=== PATIENT | female | born 1930 | race Hispanic/Latino ===

== ENCOUNTER 2016-04-12 10:29 | Emergency (ER) | payer MEDICARE ==
--- NOTE | 2016-04-12 11:41 | Emergency Department Report ---
Chief Complaint: Fall Stated Complaint: LT SHOULDER/BACK PAIN Time Seen by Provider: 04/12/16 11:27 - HPI History of Present Illness: 85-year-old female presents today with lower back pain, left shoulder and elbow pain post fall 2 days ago. Patient states that since she fell climbing up in a chair trying to get something off of the fridge. Head injury or loss of consciousness unknown. Positive for bruising of left elbow. Per family and patient has not been moving her arm since the fall. Positive for history of dementia and hypertension. - ROS Review of Systems: Per HPI - Exam Vital Signs: Vital Signs 04/12/16 10:33 Temperature 97.8 F Pulse Rate 51 L Respiratory 16 Rate Blood Pressure 138/75 O2 Sat by Pulse 100 Oximetry Physical Exam: General: 85-year-old female in no acute distress. CV: Regular rate and rhythm. Lungs: Clear to auscultation bilaterally. Left upper extremity: Tenderness to palpation or shoulder joint. Excessive ecchymosis noted of the elbow joint. Limited extremity range of motion due to pain. Normal sensation. 2 point discrimination intact. Peripheral pulses intact. MSE screening note: Focused history and physical exam performed. Due to findings the following was ordered: ED Disposition for MSE Condition: Stable
--- NOTE | 2016-04-12 13:09 | Cat Scan Report ---
CT HEAD WITHOUT CONTRAST: HISTORY: Head injury. TECHNIQUE: Sequential CT images without contrast. FINDINGS: Non-contrast CT of the head is submitted demonstrating central and cortical atrophy. There are low density changes in the periventricular white matter. There is no intracranial hemorrhage or mass effect. There is no shift of the midline. Basilar cisterns are patent. The included portions of the paranasal sinuses and mastoid air cells are clear. IMPRESSION: Senescent changes as noted. No acute intracranial process.
--- NOTE | 2016-04-12 13:18 | XRay Report ---
The lumbar spine 3 views: History: Fall, pain. Findings: Generalized osteopenia. The vertebral body heights appears normal. Normal intervertebral disc spaces. No obvious evidence of acute fracture. Abdominal aortic aneurysm. Impression: No definite evidence of acute fracture.
[2016-04-12 19:54] VITALS: BP 141/59
[2016-04-12] MEDS ORDERED: NORCO 5/325 PO ONE (20:23)
--- NOTE | 2016-04-12 20:23 | Emergency Department Report ---
HPI - General Chief Complaint: Fall Time Seen by Provider: 04/12/16 11:27 - HPI HPI: This is an 85-year-old female who presents to the emergency department 2 days after falling out of a chair and with the complaint of left shoulder and elbow pain as well as some back pain. The patient's son says he had just left the room when he heard her fall. The patient says that she may have hit the refrigerator on her way down. She denies hitting her head or any loss of consciousness. She is not taken anything for symptoms prior to presentation. She has a past medical history of dementia and hypertension. She does not have a primary care doctor or an orthopedist. She is not taken anything for symptoms prior to presentation. She is right-hand dominant. ED Past Medical Hx - Past Medical History Previous Medical History?: Yes Hx Hypertension: Yes - Surgical History Past Surgical History?: Yes Hx Cholecystectomy: Yes Additional Surgical History: Hernia repair, Hysterectomy - Social History Smoking Status: Current Every Day Smoker Substance Use Type: None - Medications Home Medications: Home Medications Medication Instructions Recorded Confirmed Last Taken Type HYDROcodone/APAP 5-325 [[place] 1 each PO Q6HR PRN #14 tablet 04/12/16 Unknown Rx 5/325] ED Review of Systems ROS: Stated complaint: LT SHOULDER/BACK PAIN Other details as noted in HPI Comment: All other systems reviewed and negative Constitutional: denies: chills, fever Eyes: denies: eye pain, eye discharge, vision change ENT: denies: ear pain, throat pain Respiratory: denies: cough, shortness of breath, wheezing Cardiovascular: denies: chest pain, palpitations Gastrointestinal: denies: abdominal pain, nausea, diarrhea Genitourinary: denies: urgency, dysuria, discharge Musculoskeletal: back pain, arthralgia Skin: denies: rash, pruritus Neurological: denies: numbness, paresthesias Physical Exam - Physical Exam Vital Signs: Vital Signs 04/12/16 04/12/16 04/12/16 10:33 18:08 18:09 Temperature 97.8 F 98.1 F Pulse Rate 51 L 87 Respiratory 16 18 18 Rate Blood Pressure 138/75 Blood Pressure 148/68 [Right] O2 Sat by Pulse 100 95 95 Oximetry 04/12/16 19:25 Temperature 97.9 F Pulse Rate 83 Respiratory 16 Rate Blood Pressure Blood Pressure 141/59 [Right] O2 Sat by Pulse 95 Oximetry Physical Exam: GENERAL: The patient is well-developed well-nourished. HEENT: Normocephalic. Atraumatic. Extraocular motions are intact. Patient has moist mucous membranes. Pupils equal reactive to light bilaterally. NECK: Supple. Trachea is midline. Nontender to palpation. Full range of motion. CHEST/LUNGS: Clear to auscultation. There is no respiratory distress noted. HEART/CARDIOVASCULAR: Regular. There is no tachycardia. There is no gallop rub or murmur. ABDOMEN: Abdomen is soft, nontender. Patient has normal bowel sounds. There is no abdominal distention. SKIN: There is some ecchymosis seen to the left elbow and inside of the left bicep. NEURO: The patient is awake, alert, and oriented. The patient is cooperative. The patient has no focal neurologic deficits. The patient has normal speech and gait. MUSCULOSKELETAL: Patient has tenderness palpation to the left upper arm from the shoulder to the elbow. There is no limitation range of motion. There is no evidence of acute injury. Radial pulses +2 over 4 bilaterally. Cap refill less than 2 seconds. Neurovascularly intact. BACK: Patient has some intermittent areas of tenderness to palpation but no obvious midline deformity or step-off. ED Course Vital Signs 04/12/16 04/12/16 04/12/16 10:33 18:08 18:09 Temperature 97.8 F 98.1 F Pulse Rate 51 L 87 Respiratory 16 18 18 Rate Blood Pressure 138/75 Blood Pressure 148/68 [Right] O2 Sat by Pulse 100 95 95 Oximetry 04/12/16 19:25 Temperature 97.9 F Pulse Rate 83 Respiratory 16 Rate Blood Pressure Blood Pressure 141/59 [Right] O2 Sat by Pulse 95 Oximetry ED Medical Decision Making - Radiology Data Radiology results: report reviewed, image reviewed interpreted by me: X-ray of the lumbar spine does not show any fracture, subluxation or any acute process. X-ray of the left elbow does not show any fracture, dislocation or any acute process. X-ray of the left shoulder shows a fracture of the humeral head that is comminuted. There is a portion that is impacted and angulated and a lateral fracture piece that appears in place. CT of the head shows senescent changes but otherwise no acute intracranial process. - Medical Decision Making 85-year-old female presents to the emergency department a few days after a fall out of a chair. She complains mostly of pain to the left upper arm. X-ray does not show any fracture or deformity of the elbow, but she does appear to have an acute comminuted fracture of the left humeral head. Patient will be placed in a sling. She is neurovascularly intact. CT of the head did not show any bleed, shift or any acute cranial process. X-ray of the lumbar spine was done and read by radiology and there is no signs of any fracture or dislocation. The patient continues to complain of some back pain when she is moved but it does not appear to be midline or have any step-off or deformity. I offered to the family to do a more thorough investigation of the spine including a CT of the thoracic and lumbar spine. However the family feels that her pain is probably most likely related to her shoulder fracture and have refused any further CT imaging of the the back at this time. She'll be given a referral for orthopedist and they will say they will get her back evaluated there as well, along with the shoulder fracture. She will remain in the sling until that time. However if she develops any worsening of her back pain, numbness or paresthesias or any problems with bowel or bladder, she'll be brought back emergently for a CT or MRI. She'll be given some pain medication. He managed by her son and they understand that is sedating and can cause further falls so they will monitor closely. - Differential Diagnosis shoulder fracture, elbow fracture, dislocation, contusion, brain bleed Critical Care Time: No Critical care attestation.: If time is entered above; I have spent that time in minutes in the direct care of this critically ill patient, excluding procedure time. ED Disposition Clinical Impression: Comminuted left humeral fracture, Elbow pain, left Back pain Qualifiers: Back pain location: back pain in unspecified location Chronicity: acute Back pain laterality: unspecified Qualified Code(s): M54.9 - Dorsalgia, unspecified Fall Qualifiers: Encounter type: initial encounter Qualified Code(s): W19.XXXA - Unspecified fall, initial encounter Disposition: DISCHARGED TO HOME OR SELFCARE Is pt being admited?: No Does the pt Need Aspirin: No Condition: Stable Instructions: Arm Fracture in Adults (ED), Fall Prevention for Older Adults (ED ) Additional Instructions: I have given you a referral for a local orthopedist, Dr. Gimenez, to follow up regarding the left shoulder/humeral head fracture. The patient should remain in the sling until follow-up at that time. I have also given you other physician names for primary care physicians so he can establish care with them as well. You've been prescribed a medication that is sedating. Therefore this medication cannot be mixed with alcohol, or taken prior to driving, working, or being responsible for children. The pain medication may make you more prone to fall and you should be monitored closely. Prescriptions: HYDROcodone/APAP 5-325 [[place] 5/325] 1 each PO Q6HR PRN #14 tablet PRN Reason: Pain Referrals: PRIMARY CARE, [Primary Care Provider] - 3-5 Days JULIETTE GIMENEZ MD [Staff Physician] - 3-5 Days CHANDRIKA JIMENEZ MD [Staff Physician] - 3-5 Days GERTRUDE CENTENO MD [Staff Physician] - 3-5 Days Time of Disposition: 21:32
--- NOTE | 2016-04-12 21:24 | XRay Report ---
FINAL REPORT PROCEDURE: XR SHOULDER 2 LT TECHNIQUE: Left shoulder, three views HISTORY: shoulder pain Fall - pain COMPARISON: No prior studies are available for comparison. FINDINGS: There is an acute comminuted fracture of the left humeral head, with impaction. There is a fragment mildly displaced laterally, measuring 2.4 x 0.8 centimeters. Glenohumeral joint does not appear dislocated. Acromioclavicular joint is intact. IMPRESSION: Acute comminuted fracture of the humeral head
--- NOTE | 2016-04-13 10:45 | XRay Report ---
LEFT ELBOW, 3 VIEWS: HISTORY: Pain after fall. FINDINGS: Limited non-standard views were obtained secondary to poor patient cooperation. Osteopenia is evident. No acute osseous injury or joint pathology is detected. IMPRESSION: No acute abnormality is detected. Osteopenia.
== END 2016-04-12 22:05 | disposition home or self-care (01) ==
LOC: ED 10:29
DX: S42.355A Nondisplaced comminuted fracture of shaft of humerus, left arm, initial encounter for closed fracture (principal); M25.522 Pain in left elbow; M54.9 Dorsalgia, unspecified; I10 Essential (primary) hypertension; F17.200 Nicotine dependence, unspecified, uncomplicated; Z90.49 Acquired absence of other specified parts of digestive tract; Z90.710 Acquired absence of both cervix and uterus; W07.XXXA Fall from chair, initial encounter; Y93.89 Activity, other specified; Y99.8 Other external cause status; Y92.89 Other specified places as the place of occurrence of the external cause
CPT/HCPCS: 70450; 72100

== ENCOUNTER 2016-08-12 13:25 | Inpatient (IN) | payer MEDICARE ==
[2016-08-12] MEDS ORDERED: NACL 0.9% 1000 ML 1,000 ML IV ONE ×2 (14:18→15:00)
[2016-08-12] MEDS ORDERED: NACL 0.9% 1000 ML 1,000 ML ONE (14:19)
[2016-08-12 14:39] LABS: Basophils % (Auto) 0.5 % (0.0-1.8); Hematocrit 36.6 % (30.3-42.9); Mean Corpuscular HGB Conc 33 % (30-34); Mean Corpuscular Hemoglobin 30 pg (28-32); Mean Corpuscular Volume 90 fl (79-97); Platelet Count 128 K/mm3 (140-440); Red Blood Count 4.08 M/mm3 (3.65-5.03); Red Cell Distribution Width 19.2 % (13.2-15.2); White Blood Count 3.8 K/mm3 (4.5-11.0)
[2016-08-12 14:53] LABS: Alanine Aminotransferase 6 units/L (7-56); Albumin 2.4 g/dL (3.9-5); Albumin/Globulin Ratio 0.9 %; Alkaline Phosphatase 80 units/L (35-129); Anion Gap 20 mmol/L; BUN/Creatinine Ratio 25.71; Blood Urea Nitrogen 18 mg/dL (7-17); Calcium 7.9 mg/dL (8.4-10.2); Carbon Dioxide 24 mmol/L (22-30); Chloride 97.7 mmol/L (98-107); Glucose 93 mg/dL (65-100); Potassium 3.4 mmol/L (3.6-5.0); Sodium 138 mmol/L (137-145); Total Protein 5.1 g/dL (6.3-8.2)
[2016-08-12 15:07] LABS: Bilirubin,Urine NEG (Negative); Blood,Urine NEG (Negative); Ketones,Urine NEG (Negative); Leukocyte Esterase,Urine NEG (Negative); Mucus,Urine FEW /HPF; Nitrite,Urine NEG (Negative); Protein,Urine <15 mg/dL mg/dL (Negative); RBC,Urine < 1.0 /HPF (0.0-6.0); WBC,Urine < 1.0 /HPF (0.0-6.0)
--- NOTE | 2016-08-12 15:08 | Emergency Department Report ---
ED Altered Mental Status HPI - General Chief Complaint: Fall Stated Complaint: FALL/LEFT SIDED PAIN AND ARM BLEEDING Time Seen by Provider: 08/12/16 14:36 Source: family, EMS Mode of arrival: Stretcher Limitations: Altered Mental Status - History of Present Illness MD Complaint: altered mental status, confusion, decreased responsiveness -: Gradual Severity: moderate Consistency of Symptoms: getting worse, constant Associated Symptoms: denies: chest pain, cough, diaphoresis, fever/chills, malaise, nausea/vomiting, rash, seizure, shortness of breath, syncope - Related Data Home Medications Medication Instructions Recorded Confirmed Last Taken No Known Home Medications [No 08/12/16 08/12/16 Unknown Reported Home Medications] Allergies Allergy/AdvReac Type Severity Reaction Status Date / Time No Known Allergies Allergy Verified 08/12/16 14:23 ED Review of Systems ROS: Stated complaint: FALL/LEFT SIDED PAIN AND ARM BLEEDING Other details as noted in HPI Comment: All other systems reviewed and negative ED Past Medical Hx - Past Medical History Hx Hypertension: Yes Hx Dementia: Yes (Alzheimers) - Surgical History Hx Cholecystectomy: Yes Additional Surgical History: Hernia repair, Hysterectomy - Social History Smoking Status: Current Every Day Smoker Substance Use Type: None - Medications Home Medications: Home Medications Medication Instructions Recorded Confirmed Last Taken Type No Known Home Medications [No 08/12/16 08/12/16 Unknown History Reported Home Medications] ED Physical Exam - General Limitations: Altered Mental Status General appearance: in no apparent distress, lethargic, obtunded - Head Head exam: Present: atraumatic, normocephalic - Eye Eye exam: Present: normal appearance - ENT ENT exam: Present: normal exam, normal orophraynx, mucous membranes moist - Neck Neck exam: Present: normal inspection - Respiratory Respiratory exam: Present: normal lung sounds bilaterally. Absent: respiratory distress - Cardiovascular Cardiovascular Exam: Present: regular rate, normal rhythm. Absent: systolic murmur, diastolic murmur, rubs, gallop - GI/Abdominal GI/Abdominal exam: Present: soft, normal bowel sounds - Extremities Exam Extremities exam: Present: normal inspection - Back Exam Back exam: Present: normal inspection - Neurological Exam Neurological exam: Present: alert, oriented X3 - Psychiatric Psychiatric exam: Present: normal affect, normal mood - Skin Skin exam: Present: warm, dry, intact, normal color. Absent: rash ED Course Vital Signs 08/12/16 08/12/16 14:01 14:12 Temperature 98.5 F Pulse Rate 81 Respiratory 18 16 Rate Blood Pressure 120/76 O2 Sat by Pulse 98 Oximetry - Lab Data Result diagrams: 08/12/16 14:22 08/12/16 14:22 Lab Results 08/12/16 08/12/16 08/12/16 Range/Units 14:22 14:22 14:22 WBC 3.8 L (4.5-11.0) K/mm3 RBC 4.08 (3.65-5.03) M/mm3 Hgb 12.0 (10.1-14.3) gm/dl Hct 36.6 (30.3-42.9) % MCV 90 (79-97) fl MCH 30 (28-32) pg MCHC 33 (30-34) % RDW 19.2 H (13.2-15.2) % Plt Count 128 L (140-440) K/mm3 Lymph % (Auto) 17.6 (13.4-35.0) % [place] % (Auto) 9.2 H (0.0-7.3) % Eos % (Auto) 1.0 (0.0-4.3) % Baso % (Auto) 0.5 (0.0-1.8) % Lymph # 0.7 L (1.2-5.4) K/mm3 [place] # 0.4 (0.0-0.8) K/mm3 Eos # 0.0 (0.0-0.4) K/mm3 Baso # 0.0 (0.0-0.1) K/mm3 Seg Neutrophils % 71.7 H (40.0-70.0) % Seg Neutrophils # 2.7 (1.8-7.7) K/mm3 PT (12.2-14.9) Sec. INR (0.87-1.13) APTT (24.2-36.6) Sec. Sodium 138 (137-145) mmol/L Potassium 3.4 L (3.6-5.0) mmol/L Chloride 97.7 L (98-107) mmol/L Carbon Dioxide 24 (22-30) mmol/L Anion Gap 20 mmol/L BUN 18 H (7-17) mg/dL Creatinine 0.7 (0.7-1.2) mg/dL Estimated GFR > 60 ml/min BUN/Creatinine Ratio 25.71 % Glucose 93 (65-100) mg/dL Lactic Acid (0.7-2.0) mmol/L Calcium 7.9 L (8.4-10.2) mg/dL Total Bilirubin 0.70 (0.1-1.2) mg/dL AST 11 (5-40) units/L ALT 6 L (7-56) units/L Alkaline Phosphatase 80 (35-129) units/L Ammonia (25-60) umol/L Total Creatine Kinase 23 L (30-135) units/L Total Protein 5.1 L (6.3-8.2) g/dL Albumin 2.4 L (3.9-5) g/dL Albumin/Globulin Ratio 0.9 % TSH (0.270-4.200) mlU/mL Urine Color (Yellow) Urine Turbidity (Clear) Urine pH (5.0-7.0) Ur Specific [place] (1.003-1.030) Urine Protein (Negative) mg/dL Urine Glucose (UA) (Negative) mg/dL Urine Ketones (Negative) mg/dL Urine Blood (Negative) Urine Nitrite (Negative) Urine Bilirubin (Negative) Urine Urobilinogen (<2.0) mg/dL Ur Leukocyte Esterase (Negative) Urine WBC (Auto) (0.0-6.0) /HPF Urine RBC (Auto) (0.0-6.0) /HPF U Epithel Cells (Auto) (0-13.0) /HPF Urine Mucus /HPF 08/12/16 08/12/16 08/12/16 Range/Units 14:55 15:45 15:45 WBC (4.5-11.0) K/mm3 RBC (3.65-5.03) M/mm3 Hgb (10.1-14.3) gm/dl Hct (30.3-42.9) % MCV (79-97) fl MCH (28-32) pg MCHC (30-34) % RDW (13.2-15.2) % Plt Count (140-440) K/mm3 Lymph % (Auto) (13.4-35.0) % [place] % (Auto) (0.0-7.3) % Eos % (Auto) (0.0-4.3) % Baso % (Auto) (0.0-1.8) % Lymph # (1.2-5.4) K/mm3 [place] # (0.0-0.8) K/mm3 Eos # (0.0-0.4) K/mm3 Baso # (0.0-0.1) K/mm3 Seg Neutrophils % (40.0-70.0) % Seg Neutrophils # (1.8-7.7) K/mm3 PT 13.5 (12.2-14.9) Sec. INR 1.04 (0.87-1.13) APTT 30.9 (24.2-36.6) Sec. Sodium (137-145) mmol/L Potassium (3.6-5.0) mmol/L Chloride (98-107) mmol/L Carbon Dioxide (22-30) mmol/L Anion Gap mmol/L BUN (7-17) mg/dL Creatinine (0.7-1.2) mg/dL Estimated GFR ml/min BUN/Creatinine Ratio % Glucose (65-100) mg/dL Lactic Acid 1.00 (0.7-2.0) mmol/L Calcium (8.4-10.2) mg/dL Total Bilirubin (0.1-1.2) mg/dL AST (5-40) units/L ALT (7-56) units/L Alkaline Phosphatase (35-129) units/L Ammonia (25-60) umol/L Total Creatine Kinase (30-135) units/L Total Protein (6.3-8.2) g/dL Albumin (3.9-5) g/dL Albumin/Globulin Ratio % TSH (0.270-4.200) mlU/mL Urine Color Yellow (Yellow) Urine Turbidity Clear (Clear) Urine pH 6.0 (5.0-7.0) Ur Specific [place] 1.008 (1.003-1.030) Urine Protein <15 mg/dl (Negative) mg/dL Urine Glucose (UA) Neg (Negative) mg/dL Urine Ketones Neg (Negative) mg/dL Urine Blood Neg (Negative) Urine Nitrite Neg (Negative) Urine Bilirubin Neg (Negative) Urine Urobilinogen 2.0 (<2.0) mg/dL Ur Leukocyte Esterase Neg (Negative) Urine WBC (Auto) < 1.0 (0.0-6.0) /HPF Urine RBC (Auto) < 1.0 (0.0-6.0) /HPF U Epithel Cells (Auto) < 1.0 (0-13.0) /HPF Urine Mucus Few /HPF 08/12/16 08/12/16 Range/Units 15:45 15:45 WBC (4.5-11.0) K/mm3 RBC (3.65-5.03) M/mm3 Hgb (10.1-14.3) gm/dl Hct (30.3-42.9) % MCV (79-97) fl MCH (28-32) pg MCHC (30-34) % RDW (13.2-15.2) % Plt Count (140-440) K/mm3 Lymph % (Auto) (13.4-35.0) % [place] % (Auto) (0.0-7.3) % Eos % (Auto) (0.0-4.3) % Baso % (Auto) (0.0-1.8) % Lymph # (1.2-5.4) K/mm3 [place] # (0.0-0.8) K/mm3 Eos # (0.0-0.4) K/mm3 Baso # (0.0-0.1) K/mm3 Seg Neutrophils % (40.0-70.0) % Seg Neutrophils # (1.8-7.7) K/mm3 PT (12.2-14.9) Sec. INR (0.87-1.13) APTT (24.2-36.6) Sec. Sodium (137-145) mmol/L Potassium (3.6-5.0) mmol/L Chloride (98-107) mmol/L Carbon Dioxide (22-30) mmol/L Anion Gap mmol/L BUN (7-17) mg/dL Creatinine (0.7-1.2) mg/dL Estimated GFR ml/min BUN/Creatinine Ratio % Glucose (65-100) mg/dL Lactic Acid (0.7-2.0) mmol/L Calcium (8.4-10.2) mg/dL Total Bilirubin (0.1-1.2) mg/dL AST (5-40) units/L ALT (7-56) units/L Alkaline Phosphatase (35-129) units/L Ammonia < 10.0 L (25-60) umol/L Total Creatine Kinase (30-135) units/L Total Protein (6.3-8.2) g/dL Albumin (3.9-5) g/dL Albumin/Globulin Ratio % TSH 9.480 H (0.270-4.200) mlU/mL Urine Color (Yellow) Urine Turbidity (Clear) Urine pH (5.0-7.0) Ur Specific [place] (1.003-1.030) Urine Protein (Negative) mg/dL Urine Glucose (UA) (Negative) mg/dL Urine Ketones (Negative) mg/dL Urine Blood (Negative) Urine Nitrite (Negative) Urine Bilirubin (Negative) Urine Urobilinogen (<2.0) mg/dL Ur Leukocyte Esterase (Negative) Urine WBC (Auto) (0.0-6.0) /HPF Urine RBC (Auto) (0.0-6.0) /HPF U Epithel Cells (Auto) (0-13.0) /HPF Urine Mucus /HPF - EKG Data -: EKG Interpreted by Pr EKG shows normal: sinus rhythm When compared to previous EKG there are: no significant change - Radiology Data Radiology results: report reviewed, image reviewed - Medical Decision Making will admit for social reasons , getting more confused and weak , multiple falls recently too, talk to dr. zamarripa and agree with plan [facility] admission. - Core Measures AMI Core Measures Followed: No - NEXUS Criteria Focal neurological deficit present: No Midline spinal tenderness present: No Altered level of consciousness: No Intoxication present: No Distracting injury present: No NEXUS results: C-Spine can be cleared clinically by these results. Imaging is not required. Critical care attestation.: If time is entered above; I have spent that time in minutes in the direct care of this critically ill patient, excluding procedure time. ED Disposition Clinical Impression: Weakness, Altered mental status Disposition: OP ADMITTED IP TO THIS HOSP Is pt being admited?: Yes Does the pt Need Aspirin: No Condition: Good Referrals: PRIMARY CARE, [Primary Care Provider] - 3-5 Days Time of Disposition: 17:50
--- NOTE | 2016-08-12 15:31 | Cat Scan Report ---
CT HEAD WITHOUT CONTRAST INDICATION: Altered mental status. COMPARISON: 04/12/2016 FINDINGS: Noncontrast head CT demonstrates stable, age-appropriate enlargement of the ventricles and sulci. Moderate periventricular and white matter hypodensities also again noted. No definite acute infarct, hemorrhage, mass effect or shift. No abnormal extra-axial fluid collections. Posterior fossa structures and basilar cisterns appear within normal limits. Bilateral cataract surgery. Rightward nasal septal bowing. Clear visualized paranasal sinuses and mastoid air cells. Intact calvarium and scalp. Atherosclerotic internal carotid and vertebral artery calcifications. Edentulous jaw. CONCLUSION: 1. No acute intracranial CT abnormality with age-appropriate atrophy and microvascular changes. 2. Few other incidental findings, as above. Thank you for the opportunity to participate in this patient's care.
[2016-08-12 16:22] LABS: INR 1.04 (0.87-1.13)
[2016-08-12 16:23] LABS: Partial Thromboplastin Time 30.9 Sec. (24.2-36.6)
--- NOTE | 2016-08-12 19:00 | Admit Criteria Form ---
Admission Criteria Documentation: MENTAL STATUS CHANGE Clinical Indications for Inpatient Care (Place 'X' for any and all applicable criteria): Ongoing inpatient care may be needed for 1 or more of the following(1)(2)(3)(5)( 6): [ ]I. Suspected serious etiology (eg, medical disorder, LABORATORY MONITOR event) of altered mental status [ ]II. Danger to self or others not manageable at lower level of care [ ]III. Grave disability (eg, inability to perform self care necessary at lower level of care) [ ]IV. Agitation or inappropriate behavior interfering with care for primary condition (eg, attempting to discontinue lines or drains prematurely, unable to cooperate with respiratory care) [ ]V. Delirium [A] [D][E] as described by 1 or more of the following(26): [ ]a) Delirium due to alcohol or sedative [F] withdrawal [ ]b) Delirium of uncertain etiology that has not responded to appropriate empiric treatment [ ]c) Delirium that prevents performance of a life-sustaining function (eg, feeding or hydrating oneself) [X]. General contraindications and/or Inappropriate clinical situations for Observational Care in patients with Mental Status Change, when ANY ONE of the following is required: [X]a) Prediction of prolongation of LOS based on ANY ONE of the following may be considered as a contraindication for observational care 2, 3, 4, 5, 6, 7, 8, 9, 10, 11 [X]i) Age > 65 yrs. [ ]ii) Patient arriving by ambulance [ ]iii) Patient with high acuity [ ]iv) Patient requiring vital sign monitoring [ ]v) Patient on IV medication [ ]b) Systolic blood pressures greater than or equal to 180mmHg 3, 12 [ ]c) Patient with altered mental status including delirium and other alteration of consciousness, (3) [ ]d) Patient whose discharge disposition will be to a correction home or rehabilitation home should not be managed in Emergency Department Observation Unit. CMS rule requires 3 days hospital stay before such placement.3,13 [ ]e) Patient with failure to thrive due to broad array of etiologies 3,16,17 [ ]f) Inability to ambulate 3,14 Extended stay beyond goal length of stay for the primary condition may be needed until ALL of the following are present(3)(5): [ ]a) Underlying medical etiology of mental status change is absent, or has been established and adequately treated [ ]b) Danger to self or others is absent or manageable at lower level of care. [ ]c) Behavior crisis management, including physical or chemical restraints, is not required or available at lower level of car [ ]d) Substance or alcohol withdrawal is absent or manageable at lower level of care. [ ]e) Behavioral symptoms (eg, agitation, somnolence, inappropriate behavior) are absent, or are manageable at lower level of care. The original [facility] [employer] content created by [facility] has been revised. The portions of the content which have been revised are identified through the use of italic text or in bold, and [facility] has neither reviewed nor approved the modified material. All other unmodified content is copyright [facility]. Please see references footnoted in the original [facility] edition 2016 Admission Criteria Met: Yes
[2016-08-12] MEDS ORDERED: PERCOCET 5/325 PO PRN (21:15)
[2016-08-12] MEDS ORDERED: MILK OF MAGNESIA PO PRN (21:15)
[2016-08-12] MEDS ORDERED: ZOFRAN IV PRN (21:15)
[2016-08-12] MEDS ORDERED: TYLENOL PO PRN (21:15)
[2016-08-12] MEDS ORDERED: DULCOLAX PR PRN (21:15)
[2016-08-12] MEDS ORDERED: DILAUDID IV PRN (21:15)
--- NOTE | 2016-08-12 21:15 | Event Note ---
Date: 08/12/16 See H/p in reports
[2016-08-13] MEDS: LOVENOX SUB-Q SCH ×2 (00:35→10:22)
[2016-08-13] MEDS: NACL 0.9% 1000 ML 1,000 ML IV SCH ×2 (03:27→22:26)
[2016-08-13] MEDS ORDERED: K-DUR PO ONE ×2 (03:31→07:00)
[2016-08-13] MEDS: SYNTHROID PO SCH (06:47)
[2016-08-13 06:53] LABS: Basophils % (Auto) 0.5 % (0.0-1.8); Eosinophils % (Auto) 0.7 % (0.0-4.3); Hemoglobin 11.8 gm/dl (10.1-14.3); Mean Corpuscular HGB Conc 33 % (30-34); Mean Corpuscular Hemoglobin 29 pg (28-32); Mean Corpuscular Volume 89 fl (79-97); Platelet Count 123 K/mm3 (140-440); Red Blood Count 4.06 M/mm3 (3.65-5.03); Red Cell Distribution Width 19.2 % (13.2-15.2); White Blood Count 4.5 K/mm3 (4.5-11.0)
--- NOTE | 2016-08-13 07:02 | History and Physical Report ---
CHIEF COMPLAINT: 1. Altered sensorium. 2. Fall and left elbow laceration with skin tear. HISTORY OF PRESENT ILLNESS: An 85-year-old female with no significant past medical history, except dementia and a questionable hypertension, brought in for frequent falls. The patient has been falling frequently for last couple of months, but mostly in the last 1 week. The patient had a fall and had a skin tear to the left arm just above the left elbow. The patient is also confused and with altered sensorium. No fever, no chills. No chest pain. No recent travel. PAST MEDICAL HISTORY: Questionable hypertension and dementia. PAST SURGICAL HISTORY: Cholecystectomy, hysterectomy and hernia repair. SOCIAL HISTORY: Smoker. FAMILY HISTORY: No hypertension or diabetes. CURRENT MEDICATIONS: None. REVIEW OF SYSTEMS: Significant for altered sensorium, confusion, frequent falls and a left elbow skin tear. Otherwise, review of systems is essentially negative. The patient also is debilitated. PHYSICAL EXAMINATION: GENERAL: Elderly female, confused, possibly secondary to dementia. VITAL SIGNS: Temperature 98.5, pulse 81, respirations 18, blood pressure 120/76, sats 98%. HEENT: Unremarkable. Pupils equal and reactive. NECK: Supple. No lymphadenopathy. No thyromegaly. LUNGS: Clear to auscultation and percussion. Good air entry. CVS: S1, S2 heard. No gallop, no murmur, no rub. Apical impulse in left fifth intercostal space and midclavicular line. ABDOMEN: Soft and benign. No hepatosplenomegaly, no guarding, no rigidity. Hernial orifices are normal. EXTREMITIES: Left elbow skin tear present, covered with bandage. CENTRAL NERVOUS SYSTEM: Alert, but not oriented. LABORATORY DATA: Significant for potassium of 3.4, otherwise electrolytes are normal. Hemoglobin and hematocrit are 12 and 36.6. IMAGING DATA: Head CT was normal. No acute intracranial CT abnormality. ASSESSMENT AND PLAN: 1. Altered mental status, probably secondary to progressive dementia resulting in confusion. Also caused some frequent falls because of lack of coordination. Needs a intermediate facility by acute rehab. 2. Left skin tear, dressing applied. 3. Dementia, progressive. ____ agitation present. 4. Deep venous thrombosis prophylaxis. Lovenox 40 mg subcutaneous daily. CASE MANAGEMENT ISSUES AND DISCHARGE PLANNING ISSUES: The patient needs intermediate facility placement because the patient is unable to take care of herself and frequent falls. Son to discuss with the senior case manager. JOB# [id number] TRUPTI/GRAY
[2016-08-13 07:20] LABS: Alanine Aminotransferase 6 units/L (7-56); Albumin 2.5 g/dL (3.9-5); Alkaline Phosphatase 78 units/L (35-129); Anion Gap 19 mmol/L; BUN/Creatinine Ratio 21.66; Blood Urea Nitrogen 13 mg/dL (7-17); Calcium 7.6 mg/dL (8.4-10.2); Carbon Dioxide 22 mmol/L (22-30); Chloride 102.5 mmol/L (98-107); Glucose 79 mg/dL (65-100); Potassium 3.1 mmol/L (3.6-5.0); Sodium 140 mmol/L (137-145)
--- NOTE | 2016-08-13 14:52 | Progress Note ---
Assessment and Plan Assessment and plan: 85-year-old female worsening Alzheimer's dementia presents with dehydration and malnutrition failure to thrive. Total Time Spent with Patient (Minutes): 28 - Patient Problems (1) Dementia Current Visit: Yes Status: Acute Qualifiers: Dementia type: Alzheimer's disease Alzheimer's disease onset: A Dementia behavioral disturbance: D Plan to address problem: Walker has dementia of the Alzheimer's type. Medication require discontinuation secondary to nausea. Son at bedside does not sure what medicine that was. Will be started back with follow-up with Dr. Moran in 3-5 days. Patient also had medicines for mood which she will bring in and see if we can give patient something for sleep at night. (2) Altered mental status Current Visit: Yes Status: Acute Qualifiers: Altered mental status type: A Coma depth: C Coma timing: C Plan to address problem: Secondary to dementia straightforward acute altered mental status is resolved. (3) Weakness Current Visit: Yes Status: Acute Plan to address problem: Ms. secondary to dehydration malnutrition. (4) Fall Current Visit: No Status: Acute Qualifiers: Encounter type: E Plan to address problem: Fall secondary to dehydration failure to thrive malnutrition deconditioning. Will benefit from physical therapy. Family like to take the patient home and can get physical therapy at the house once patient is been rehydrated. (5) Hypokalemia Current Visit: Yes Status: Acute Plan to address problem: Resolved treated (6) Malnutrition Current Visit: Yes Status: Acute Plan to address problem: Agents severe protein deficiency malnutrition secondary to worsening Alzheimer' s dementia family like to have a short trial of Megace. History Interval history: Should have bedside with son confused but alert. States she wants to go to the living room. Did not respond we'll readdress. Long discussion with the son patient has not been eating or drinking well and after that time began to have falls. Clearly has cognitive deficits. Has been diagnosed with dementia. Is a patient of Dr. Moran. Stated that she took something that made her too drowsy. Hospitalist Physical - Constitutional Vitals: Temp Pulse Resp BP Pulse Ox 97.8 F 80 18 169/81 99 08/13/16 07:19 08/13/16 07:19 08/13/16 07:19 08/13/16 07:19 08/13/16 07:19 General appearance: Present: no acute distress - EENT Eyes: Present: PERRL, EOM intact ENT: hearing intact, clear oral mucosa, poor dentition, other (profound temporal wasting) - Neck Neck: Present: supple, normal ROM - Respiratory Respiratory: bilateral: CTA - Cardiovascular Rhythm: regular Heart Sounds: Present: S1 & S2, systolic murmur - Extremities Extremities: no ischemia, pulses intact, pulses symmetrical, No edema, normal temperature, normal color, Full ROM Extremity abnormal: other (Marta) Peripheral Pulses: within normal limits - Abdominal General gastrointestinal: soft, non-tender, normal bowel sounds, other (4) - Integumentary Integumentary: Present: clear, warm, dry - Psychiatric Psychiatric: appropriate mood/affect, memory intact, cooperative (poor cognition ), other (all cognition poor memory) - Neurologic Neurologic: CNII-XII intact, moves all extremities Results - Labs CBC & Chem 7: 08/13/16 05:36 08/13/16 05:36 Labs: Laboratory Last Values WBC 4.5 K/mm3 (4.5-11.0) 08/13/16 05:36 RBC 4.06 M/mm3 (3.65-5.03) 08/13/16 05:36 Hgb 11.8 gm/dl (10.1-14.3) 08/13/16 05:36 Hct 36.0 % (30.3-42.9) 08/13/16 05:36 MCV 89 fl (79-97) 08/13/16 05:36 MCH 29 pg (28-32) 08/13/16 05:36 MCHC 33 % (30-34) 08/13/16 05:36 RDW 19.2 % (13.2-15.2) H 08/13/16 05:36 Plt Count 123 K/mm3 (140-440) L 08/13/16 05:36 Lymph % (Auto) 15.6 % (13.4-35.0) 08/13/16 05:36 Bee % (Auto) 8.9 % (0.0-7.3) H 08/13/16 05:36 Eos % (Auto) 0.7 % (0.0-4.3) 08/13/16 05:36 Baso % (Auto) 0.5 % (0.0-1.8) 08/13/16 05:36 Lymph # 0.7 K/mm3 (1.2-5.4) L 08/13/16 05:36 Bee # 0.4 K/mm3 (0.0-0.8) 08/13/16 05:36 Eos # 0.0 K/mm3 (0.0-0.4) 08/13/16 05:36 Baso # 0.0 K/mm3 (0.0-0.1) 08/13/16 05:36 Seg Neutrophils % 74.3 % (40.0-70.0) H 08/13/16 05:36 Seg Neutrophils # 3.3 K/mm3 (1.8-7.7) 08/13/16 05:36 PT 13.5 Sec. (12.2-14.9) 08/12/16 15:45 INR 1.04 (0.87-1.13) 08/12/16 15:45 APTT 30.9 Sec. (24.2-36.6) 08/12/16 15:45 Sodium 140 mmol/L (137-145) 08/13/16 05:36 Potassium 3.1 mmol/L (3.6-5.0) L 08/13/16 05:36 Chloride 102.5 mmol/L (98-107) 08/13/16 05:36 Carbon Dioxide 22 mmol/L (22-30) 08/13/16 05:36 Anion Gap 19 mmol/L 08/13/16 05:36 BUN 13 mg/dL (7-17) 08/13/16 05:36 Creatinine 0.6 mg/dL (0.7-1.2) L 08/13/16 05:36 Estimated GFR > 60 ml/min 08/13/16 05:36 BUN/Creatinine Ratio 21.66 % 08/13/16 05:36 Glucose 79 mg/dL (65-100) 08/13/16 05:36 Hemoglobin A1c 5.5 % (4-6) 08/12/16 21:10 Lactic Acid 1.00 mmol/L (0.7-2.0) 08/12/16 15:45 Calcium 7.6 mg/dL (8.4-10.2) L 08/13/16 05:36 Total Bilirubin 0.60 mg/dL (0.1-1.2) 08/13/16 05:36 AST 11 units/L (5-40) 08/13/16 05:36 ALT 6 units/L (7-56) L 08/13/16 05:36 Alkaline Phosphatase 78 units/L (35-129) 08/13/16 05:36 Ammonia < 10.0 umol/L (25-60) L 08/12/16 15:45 Total Creatine Kinase 23 units/L (30-135) L 08/12/16 14:22 Total Protein 5.0 g/dL (6.3-8.2) L 08/13/16 05:36 Albumin 2.5 g/dL (3.9-5) L 08/13/16 05:36 Albumin/Globulin Ratio 1.0 % 08/13/16 05:36 TSH 9.480 mlU/mL (0.270-4.200) H 08/12/16 15:45 Urine Color Yellow (Yellow) 08/12/16 14:55 Urine Turbidity Clear (Clear) 08/12/16 14:55 Urine pH 6.0 (5.0-7.0) 08/12/16 14:55 Ur Specific Almo 1.008 (1.003-1.030) 08/12/16 14:55 Urine Protein <15 mg/dl mg/dL (Negative) 08/12/16 14:55 Urine Glucose (UA) Neg mg/dL (Negative) 08/12/16 14:55 Urine Ketones Neg mg/dL (Negative) 08/12/16 14:55 Urine Blood Neg (Negative) 08/12/16 14:55 Urine Nitrite Neg (Negative) 08/12/16 14:55 Urine Bilirubin Neg (Negative) 08/12/16 14:55 Urine Urobilinogen 2.0 mg/dL (<2.0) 08/12/16 14:55 Ur Leukocyte Esterase Neg (Negative) 08/12/16 14:55 Urine WBC (Auto) < 1.0 /HPF (0.0-6.0) 08/12/16 14:55 Urine RBC (Auto) < 1.0 /HPF (0.0-6.0) 08/12/16 14:55 U Epithel Cells (Auto) < 1.0 /HPF (0-13.0) 08/12/16 14:55 Urine Mucus Few /HPF 08/12/16 14:55
[2016-08-13] MEDS: RESTORIL PO SCH (22:26)
[2016-08-14 06:05] LABS: Anion Gap 14 mmol/L; BUN/Creatinine Ratio 18.33; Blood Urea Nitrogen 11 mg/dL (7-17); Calcium 7.7 mg/dL (8.4-10.2); Carbon Dioxide 23 mmol/L (22-30); Chloride 107.3 mmol/L (98-107); Glucose 79 mg/dL (65-100); Potassium 3.6 mmol/L (3.6-5.0); Sodium 141 mmol/L (137-145)
[2016-08-14] MEDS: SYNTHROID PO SCH (06:33)
[2016-08-14] MEDS: LOVENOX SUB-Q SCH (09:26)
[2016-08-14] MEDS: MEGACE PO SCH (09:27)
--- NOTE | 2016-08-14 13:27 | Progress Note ---
Assessment and Plan Assessment and plan: 85-year-old female worsening Alzheimer's dementia presents with dehydration and malnutrition failure to thrive. - Patient Problems (1) Dementia Current Visit: Yes Status: Acute Qualifiers: Dementia type: Alzheimer's disease Alzheimer's disease onset: A Dementia behavioral disturbance: D Plan to address problem: Patient appears to be advancing dementia. Mood seems to be a lot more stable. Patient has debility secondary to not eating not drinking. Did better this afternoon. We'll discharge on Megace and physical therapy. For 1 month follow- up primary care physician. Patient sees Dr. Moran we will evaluate for starting patient on meds for her dementia. (2) Altered mental status Current Visit: Yes Status: Acute Qualifiers: Altered mental status type: A Coma depth: C Coma timing: C Plan to address problem: Secondary to dementia has resolved. (3) Weakness Current Visit: Yes Status: Acute Plan to address problem: Weakness secondary to dehydration and malnutrition. Patient is started to eat again. We'll see how she does with her mobility. And if she tolerates physical therapy will be to discharge home with family in a.m. We'll also address hypothyroidism. (4) Fall Current Visit: No Status: Acute Qualifiers: Encounter type: E Plan to address problem: Fall secondary to dehydration failure to thrive malnutrition deconditioning. Will benefit from physical therapy. Family like to take the patient home and can get physical therapy at the house once patient is been rehydrated. (5) Hypokalemia Current Visit: Yes Status: Acute Plan to address problem: Resolved treated (6) Malnutrition Current Visit: Yes Status: Acute Plan to address problem: Agents severe protein deficiency malnutrition secondary to worsening Alzheimer' s dementia family like to have a short trial of Megace. (7) Hypothyroidism Current Visit: Yes Status: Acute Qualifiers: Hypothyroidism type: acquired Qualified Code(s): E03.9 - Hypothyroidism, unspecified Plan to address problem: We'll increase Synthroid to 75 mg daily follow up in 3 months. History Interval history: She doing better. Still somewhat sluggish. Gait eat better today. Son concerned about hypothyroidism were not spoke with him about thyroid and weakness. We'll change this. If patient does well with therapy we'll discharge back home versus jail facility. Hospitalist Physical - Constitutional Vitals: Temp Pulse Resp BP Pulse Ox 96.3 F L 58 L 20 123/57 99 08/14/16 08:49 08/14/16 08:49 08/14/16 08:49 08/14/16 08:49 08/14/16 08:49 General appearance: Present: no acute distress, other - EENT Eyes: Present: PERRL (temporal wasting), EOM intact ENT: hearing intact, clear oral mucosa, poor dentition - Neck Neck: Present: supple, normal ROM - Respiratory Respiratory: bilateral: CTA - Cardiovascular Rhythm: regular Heart Sounds: Present: S1 & S2 - Extremities Extremities: no ischemia, pulses intact, pulses symmetrical Peripheral Pulses: within normal limits - Abdominal General gastrointestinal: soft, non-tender, non-distended - Psychiatric Psychiatric: agitated, other (poor cognition dementia.) - Neurologic Neurologic: CNII-XII intact, moves all extremities Results - Labs CBC & Chem 7: 08/13/16 05:36 08/14/16 05:23 Labs: Laboratory Last Values WBC 4.5 K/mm3 (4.5-11.0) 08/13/16 05:36 RBC 4.06 M/mm3 (3.65-5.03) 08/13/16 05:36 Hgb 11.8 gm/dl (10.1-14.3) 08/13/16 05:36 Hct 36.0 % (30.3-42.9) 08/13/16 05:36 MCV 89 fl (79-97) 08/13/16 05:36 MCH 29 pg (28-32) 08/13/16 05:36 MCHC 33 % (30-34) 08/13/16 05:36 RDW 19.2 % (13.2-15.2) H 08/13/16 05:36 Plt Count 123 K/mm3 (140-440) L 08/13/16 05:36 Lymph % (Auto) 15.6 % (13.4-35.0) 08/13/16 05:36 Powell % (Auto) 8.9 % (0.0-7.3) H 08/13/16 05:36 Eos % (Auto) 0.7 % (0.0-4.3) 08/13/16 05:36 Baso % (Auto) 0.5 % (0.0-1.8) 08/13/16 05:36 Lymph # 0.7 K/mm3 (1.2-5.4) L 08/13/16 05:36 Powell # 0.4 K/mm3 (0.0-0.8) 08/13/16 05:36 Eos # 0.0 K/mm3 (0.0-0.4) 08/13/16 05:36 Baso # 0.0 K/mm3 (0.0-0.1) 08/13/16 05:36 Seg Neutrophils % 74.3 % (40.0-70.0) H 08/13/16 05:36 Seg Neutrophils # 3.3 K/mm3 (1.8-7.7) 08/13/16 05:36 PT 13.5 Sec. (12.2-14.9) 08/12/16 15:45 INR 1.04 (0.87-1.13) 08/12/16 15:45 APTT 30.9 Sec. (24.2-36.6) 08/12/16 15:45 Sodium 141 mmol/L (137-145) 08/14/16 05:23 Potassium 3.6 mmol/L (3.6-5.0) 08/14/16 05:23 Chloride 107.3 mmol/L (98-107) H 08/14/16 05:23 Carbon Dioxide 23 mmol/L (22-30) 08/14/16 05:23 Anion Gap 14 mmol/L 08/14/16 05:23 BUN 11 mg/dL (7-17) 08/14/16 05:23 Creatinine 0.6 mg/dL (0.7-1.2) L 08/14/16 05:23 Estimated GFR > 60 ml/min 08/14/16 05:23 BUN/Creatinine Ratio 18.33 % 08/14/16 05:23 Glucose 79 mg/dL (65-100) 08/14/16 05:23 Hemoglobin A1c 5.5 % (4-6) 08/12/16 21:10 Lactic Acid 1.00 mmol/L (0.7-2.0) 08/12/16 15:45 Calcium 7.7 mg/dL (8.4-10.2) L 08/14/16 05:23 Total Bilirubin 0.60 mg/dL (0.1-1.2) 08/13/16 05:36 AST 11 units/L (5-40) 08/13/16 05:36 ALT 6 units/L (7-56) L 08/13/16 05:36 Alkaline Phosphatase 78 units/L (35-129) 08/13/16 05:36 Ammonia < 10.0 umol/L (25-60) L 08/12/16 15:45 Total Creatine Kinase 23 units/L (30-135) L 08/12/16 14:22 Total Protein 5.0 g/dL (6.3-8.2) L 08/13/16 05:36 Albumin 2.5 g/dL (3.9-5) L 08/13/16 05:36 Albumin/Globulin Ratio 1.0 % 08/13/16 05:36 TSH 9.480 mlU/mL (0.270-4.200) H 08/12/16 15:45 Urine Color Yellow (Yellow) 08/12/16 14:55 Urine Turbidity Clear (Clear) 08/12/16 14:55 Urine pH 6.0 (5.0-7.0) 08/12/16 14:55 Ur Specific Allgood 1.008 (1.003-1.030) 08/12/16 14:55 Urine Protein <15 mg/dl mg/dL (Negative) 08/12/16 14:55 Urine Glucose (UA) Neg mg/dL (Negative) 08/12/16 14:55 Urine Ketones Neg mg/dL (Negative) 08/12/16 14:55 Urine Blood Neg (Negative) 08/12/16 14:55 Urine Nitrite Neg (Negative) 08/12/16 14:55 Urine Bilirubin Neg (Negative) 08/12/16 14:55 Urine Urobilinogen 2.0 mg/dL (<2.0) 08/12/16 14:55 Ur Leukocyte Esterase Neg (Negative) 08/12/16 14:55 Urine WBC (Auto) < 1.0 /HPF (0.0-6.0) 08/12/16 14:55 Urine RBC (Auto) < 1.0 /HPF (0.0-6.0) 08/12/16 14:55 U Epithel Cells (Auto) < 1.0 /HPF (0-13.0) 08/12/16 14:55 Urine Mucus Few /HPF 08/12/16 14:55
[2016-08-14] MEDS: RESTORIL PO SCH (22:55)
[2016-08-14] MEDS: NACL 0.9% 1000 ML 1,000 ML IV SCH (22:55)
[2016-08-15] MEDS ORDERED: SYNTHROID PO SCH (06:00)
--- NOTE | 2016-08-15 06:48 | Discharge Summary ---
Providers - Providers Date of Admission: 08/12/16 21:15 Date of discharge: 08/15/16 Attending physician: SERA WEST 08/12/16 21:24 Consult to Case Management [CONS] Routine Services Needed at Discharge: Electric Sealing Machine Operator Notified:: BASIC COMBATANT SWIMMER Additional Physician Instructions: SNF placement 08/13/16 12:25 Physical Therapy Evaluation and Treat [CONS] Routine Comment: Reason For Exam: wekanes evaluate 08/13/16 12:26 Consult to Wound/ET Nurse [CONS] Routine Reason For Exam: wound eval/ skintears Occupational Therapy Evaluate and Treat [CONS] Routine Comment: Reason For Exam: weaknes 08/13/16 18:14 Consult to Dietitian/Nutrition [CONS] Routine Physician Instructions: Reason For Exam: Reason for Consult: Malnutrition Primary care physician: SARAH CAMPBELL Hospitalization Condition: Fair Hospital course: Patient presented to the hospital with weakness falling was found to be secondary to worsening dementia malnutrition and dehydration. Patient was brought in received IV hydration and encouraged PO. Patient also had physical therapy which she could. Imbalance and has walker at home. Patient will be set home with physical therapy. Family states the already have home health nurse set up in the home. Family does not want shelter facility at this time it would like to take patient home will add Marlin KELLY for one month. Patients thyroid was also found to be subtherapeutic and we increase levothyroxin to 75. Milligrams daily Disposition: DISCHARGED TO HOME OR SELFCARE - Discharge Diagnoses (1) Dementia Status: Acute Qualifiers: Dementia type: Alzheimer's disease Alzheimer's disease onset: A Dementia behavioral disturbance: D Comment: Patient has dementia she will follow what would Dr. Sosa to start and a dimension medications. Patient did not tolerate the last one because of nausea therefore stop the medicine (2) Altered mental status Status: Acute Qualifiers: Altered mental status type: A Coma depth: C Coma timing: C Comment: Altered mental status resolved was secondary to dementia. (3) Weakness Status: Acute Comment: Secondary to dehydration and malnutrition patients eating better received IV fluids stable to go home. Does not need a feeding tube at this time. (4) Fall Status: Acute Qualifiers: Encounter type: E (5) Hypokalemia Status: Resolved (6) Malnutrition Status: Acute Comment: Patient received May gaze upon discharge. Patient was malnourished and dehydrated from not eating not drinking did not need feeding tube at this time. (7) Hypothyroidism Status: Acute Qualifiers: Hypothyroidism type: acquired Qualified Code(s): E03.9 - Hypothyroidism, unspecified Comment: Sub therapeutic may have played some role but unlikely clinical course was more consistent with dementia. We did increase levothyroxin to 75 g Core Measure Documentation - Palliative Care Palliative Care/ Comfort Measures: Not Applicable - Core Measures Any of the following diagnoses?: none Exam - Physical Exam Narrative exam: In general patients thin malnourished Mosque wasting bony prominences a showing on shoulders abdomen. Patient has a fast of 6d - Constitutional Vitals: Temp Pulse Resp BP Pulse Ox 98.1 F 69 18 142/65 97 08/15/16 05:00 08/15/16 05:00 08/15/16 05:00 08/15/16 05:00 08/15/16 05:00 General appearance: Present: no acute distress, cachectic, other (Mosque wasting ) - EENT Eyes: Present: EOM intact ENT: hearing intact, clear oral mucosa, dentition normal - Neck Neck: Present: supple, normal ROM - Respiratory Respiratory effort: normal - Cardiovascular Rhythm: regular Heart Sounds: Present: S1 & S2 Peripheral Pulses: within normal limits - Abdominal General gastrointestinal: Present: soft, non-tender, non-distended, normal bowel sounds - Musculoskeletal Musculoskeletal: generalized weakness - Psychiatric Psychiatric: appropriate mood/affect, intact judgment & insight - Neurologic Neurologic: other (Poor cognition) Plan Activity: fall precautions Weight Bearing Status: Partial Weight Bearing Diet: regular Special Instructions: physical therapy Follow up with: PRIMARY CARE, [Referring] - 3-5 Days Prescriptions: Levothyroxine [Synthroid] 75 mcg PO DAILY@0600 #30 tablet Megestrol [Megace] 400 mg PO QDAY #30 oral.liqd Temazepam [Restoril] 15 mg PO QHS #30 capsule
[2016-08-15 08:05] VITALS: BP 119/54
[2016-08-15] MEDS: NACL 0.9% 1000 ML 1,000 ML IV SCH (09:58)
[2016-08-15] MEDS: LOVENOX SUB-Q SCH (09:59)
[2016-08-15] MEDS: MEGACE PO SCH (09:59)
== END 2016-08-15 17:11 | disposition home health service (06) | DRG 56 ==
LOC: ED 13:25 → 3A 21:15
PROVIDERS: ADMIT Internal Medicine; ATTEND Internal Medicine
DX: G30.9 Alzheimer's disease, unspecified (principal); E43 Unspecified severe protein-calorie malnutrition; Z68.1 Body mass index [BMI] 19.9 or less, adult; S51.012A Laceration without foreign body of left elbow, initial encounter; E86.0 Dehydration; E87.6 Hypokalemia; E03.9 Hypothyroidism, unspecified; F02.80 Dementia in other diseases classified elsewhere, unspecified severity, without behavioral disturbance, psychotic disturbance, mood disturbance, and anxiety; F17.200 Nicotine dependence, unspecified, uncomplicated; R62.7 Adult failure to thrive; W18.39XA Other fall on same level, initial encounter; Y93.89 Activity, other specified; Y92.89 Other specified places as the place of occurrence of the external cause; Y99.8 Other external cause status; Z90.49 Acquired absence of other specified parts of digestive tract; Z90.710 Acquired absence of both cervix and uterus
CPT/HCPCS: 36415; 70450; 80048; 80053; 81001; 82140; 82550; 83036; 84443; 85025; 85610; 85730; 96360; 96361; 99406; G8978-GP; G8979-GP; G8987-GO; G8988-GO; J1650; J7030